=== PATIENT | female | born 1935 | race African-American/Black ===

== ENCOUNTER 2021-02-16 16:06 | Emergency (ER) | payer BC, MEDICAID ==
[~2021-02-16] VITALS: Ht 167.6 cm; Wt 68.0 kg
[~2021-02-16 16:06] MED LIST: AMLO10TA80 PO; COR12 PO; DOXA2TAB2 PO; PRAV20TA57 PO; PROT20 PO; VALS1TAB34 PO
[2021-02-16 17:17] LABS: BASOPHILS % 0.4 % (0.0-2.0); EOSINOPHILS % 6.7 % (0.0-5.0); HEMATOCRIT. 32.7 % (36.0-48.0); HEMOGLOBIN. 10.8 g/dL (12.0-16.0); LYMPHOCYTES % 24.8 % (20.0-50.0); MEAN CORPUSCULAR HEMOGLOBIN 28.3 pg (28.0-32.0); MEAN CORPUSCULAR VOLUME 85.7 fL (81.0-99.0); MEAN PLATELET VOLUME 9.7 fl (7.4-10.4); MONOCYTES % 13.7 % (2.0-8.0); NEUTROPHILS % 54.4 % (40.0-76.0); PLATELET 165 x1000/uL (130-400); RED BLOOD CELL COUNT 3.82 mill/uL (4.2-5.4); RED CELL DISTRIBUTION WIDTH 14.5 % (11.6-14.6)
[2021-02-16 17:24] LABS: CHLORIDE 110 mEq/L (98-107)
[2021-02-16 17:26] LABS: INR 1.1; PROTHROMBIN TIME 11.4 sec (9.6-11.0)
[2021-02-16 17:35] LABS: B-HCG QUANTITATIVE 3 mIU/mL (<3)
[2021-02-16 18:58] LABS: CLARITY URINE TURBID (CLEAR); COLOR URINE YELLOW (YELLOW); KETONES URINE NEGATIVE (NEGATIVE); LEUKOCYTE ESTERASE URINE 3+ (NEGATIVE); NITRITE URINE POSITIVE (NEGATIVE); OCCULT BLOOD URINE TRACE (NEGATIVE); PROTEIN URINE 2+ (NEGATIVE); SPECIFIC GRAVITY URINE 1.013 (1.005-1.030)
[2021-02-16] MEDS ORDERED: LEVOFLOXACIN 500MG PREMIX 100 ML IV NR (19:30)
[2021-02-16] MEDS ORDERED: HYDRALAZINE HCL 100MG TABLET PO SCH (20:00)
[2021-02-16] MEDS ORDERED: CARVEDILOL 12.5MG TABLET PO ONE (20:00)
[2021-02-16] MEDS ORDERED: NIFEDIPINE XL 60MG TAB PO ONE (20:00)
[2021-02-16] MEDS ORDERED: LEVO500T89 MT (21:09)
[2021-02-16 21:16] VITALS: BP 184/63
== END 2021-02-16 21:48 | disposition home or self-care (01) ==
LOC: ER 16:06
DX: N39.0 Urinary tract infection, site not specified (principal); N93.9 Abnormal uterine and vaginal bleeding, unspecified; I10 Essential (primary) hypertension; N17.9 Acute kidney failure, unspecified; I11.9 Hypertensive heart disease without heart failure; E11.9 Type 2 diabetes mellitus without complications; Z88.0 Allergy status to penicillin
CPT/HCPCS: 36415; 76856; 80053; 81003; 84702; 85025; 85610; 86850; 86900; 86901; 87086; 96374; 99285; J1956